=== PATIENT | male | born 1950 | race African-American/Black ===

== ENCOUNTER 2024-07-05 17:16 | Inpatient (IN) | payer MEDICARE ==
[~2024-07-05] VITALS: Ht 193 cm; Wt 77.1 kg
[2024-07-05 20:31] LABS: HEMATOCRIT. 54.3 % (42.0-52.0); HEMOGLOBIN. 18.5 g/dL (14.0-18.0); MEAN CORPUSCULAR HGB CONC 34.1 g/dL (31.0-37.0); MEAN PLATELET VOLUME 9.4 fl (7.4-10.4); PLATELET 127 x1000/uL (130-400); RED BLOOD CELL COUNT 5.97 mill/uL (4.7-6.1); RED CELL DISTRIBUTION WIDTH 13.7 % (11.6-14.6); WHITE BLOOD COUNT 7.5 x1000/uL (4.5-11.0)
[2024-07-05 20:40] LABS: POTASSIUM 5.4 mEq/L (3.5-5.1)
[2024-07-05 20:42] LABS: CALCIUM 9.9 mg/dL (8.7-10.4)
[2024-07-05] MEDS: CEFTRIAXONE 1GM/50ML 50 ML IV ONE (20:42)
[2024-07-05 20:46] LABS: CREATININE 1.5 mg/dL (0.6-1.3)
[2024-07-05 20:55] LABS: DIFFERENTIAL COMMENT 1
[2024-07-05 21:16] LABS: INR 1.1; PROTHROMBIN TIME 12.1 sec (9.6-11.0)
[2024-07-05] MEDS: AZITHROMYCIN 500MG/250ML 250 ML IV SCH (21:43)
[2024-07-05] MEDS ORDERED: IPRATROPIUM/ALBUTEROL 0.5-3(2.5)MG/3ML NEB HHN PRN (22:45)
[2024-07-05] MEDS ORDERED: ACETAMINOPHEN 325MG TABLET PO PRN (22:45)
[2024-07-05] MEDS ORDERED: DOCUSATE SODIUM 100MG CAPSULE PO PRN (22:45)
[2024-07-05] MEDS ORDERED: MAGNESIUM/ALUMINUM HYDROXIDE/SIMETHICONE 30ML UDC PO PRN (22:45)
[2024-07-05] MEDS ORDERED: ONDANSETRON HCL 4MG/2ML INJ IV PRN (22:45)
[2024-07-05 22:52] LABS: PLATELET ESTIMATE SLIGHTLY DECREASED
[2024-07-05] MEDS ORDERED: SODIUM POLYSTYRENE SULFONATE 15 G/60 ML BOT PO SCH (23:00)
[2024-07-05] MEDS ORDERED: DEXTROSE 50% WATER 50ML SYRINGE IV PRN (23:00)
[2024-07-06] VITALS (13 sets, daily range): BP systolic 94–122; BP diastolic 60–93; PULSE 68–169; RESP 18–33; TEMP 36.50292–37.0852; O2SAT 93–100
[2024-07-06] MEDS ORDERED: FURO20TA4 PO (01:05)
[2024-07-06 09:04] LABS: HEMATOCRIT. 43.2 % (42.0-52.0); HEMOGLOBIN. 14.4 g/dL (14.0-18.0); MEAN CORPUSCULAR HEMOGLOBIN 30.1 pg (28.0-32.0); MEAN CORPUSCULAR HGB CONC 33.4 g/dL (31.0-37.0); MEAN PLATELET VOLUME 10.2 fl (7.4-10.4); PLATELET 97 x1000/uL (130-400); RED CELL DISTRIBUTION WIDTH 13.5 % (11.6-14.6)
[2024-07-06] MEDS: IPRATROPIUM/ALBUTEROL 0.5-3(2.5)MG/3ML NEB HHN SCH (09:05)
[2024-07-06 09:19] LABS: DIFFERENTIAL COMMENT 1
[2024-07-06 09:30] LABS: CHLORIDE 102 mEq/L (98-107); POTASSIUM 4.7 mEq/L (3.5-5.1); SODIUM 133 mEq/L (136-145)
[2024-07-06 09:31] LABS: CALCIUM 9.2 mg/dL (8.7-10.4); CARBON DIOXIDE 24 mEq/L (21-32)
[2024-07-06 09:36] LABS: CREATININE 1.3 mg/dL (0.6-1.3); GLUCOSE 77 mg/dL (70-105); UREA NITROGEN BLOOD 22 mg/dL (9-23)
[2024-07-06] MEDS ORDERED: LISI20TA31 PO (10:04)
[2024-07-06] MEDS: LISINOPRIL 20MG TABLET PO SCH (10:37)
[2024-07-06 11:51] LABS: PHOSPHORUS 2.4 mg/dL (2.5-4.9)
[2024-07-06 14:23] LABS: HEPATITIS B SURFACE ANTIGEN NEGATIVE (Negative)
[2024-07-06 14:45] LABS: HEPATITIS C AB NON REACTIVE (Neg) (Negative)
[2024-07-06] MEDS ORDERED: BENZONATATE 100MG CAPSULE PO PRN (16:45)
[2024-07-06] MEDS: SODIUM CHLORIDE 0.9% 500 ML IV ONE (17:11)
[2024-07-06 17:16] LABS: PLATELET ESTIMATE SLIGHTLY DECREASED
[2024-07-06] MEDS: SODIUM CHLORIDE 0.9% 1,000 ML IV ONE (17:31)
[2024-07-06] MEDS ORDERED: ADENOSINE 3 MG/ML 2ML VIAL IV NR (18:00)
[2024-07-06 18:01] LABS: *AMPHETAMINES SCREEN URINE NEGATIVE (NEGATIVE); *BARBITURATES SCREEN URINE NEGATIVE (NEGATIVE); *BENZODIAZEPINES SCREEN URINE NEGATIVE (NEGATIVE); *COCAINE SCREEN URINE NEGATIVE (NEGATIVE); METHADONE URINE SCREEN NEGATIVE (NEGATIVE)
[2024-07-06 18:02] LABS: CANNABINOID URINE SCREEN NEGATIVE (NEGATIVE); ECSTASY MDMA SCREEN URINE NEGATIVE (NEGATIVE); OPIATES URINE SCREEN NEGATIVE (NEGATIVE); PHENCYCLIDINE URINE SCREEN NEGATIVE (NEGATIVE)
[2024-07-06 18:07] LABS: CLARITY URINE CLEAR (CLEAR); COLOR URINE DARK YELLOW (YELLOW); GLUCOSE URINE NEGATIVE (NEGATIVE); KETONES URINE NEGATIVE (NEGATIVE); LEUKOCYTE ESTERASE URINE NEGATIVE (NEGATIVE); NITRITE URINE NEGATIVE (NEGATIVE); OCCULT BLOOD URINE NEGATIVE (NEGATIVE); PH URINE 5.5 (4.5-8.0); PROTEIN URINE 2+ (NEGATIVE); SPECIFIC GRAVITY URINE 1.022 (1.005-1.030)
[2024-07-06] MEDS: SODIUM CHLORIDE 0.9% 1,000 ML IV SCH (18:09)
[2024-07-06] MEDS: BENZONATATE 100MG CAPSULE PO SCH (18:11)
[2024-07-06 18:32] LABS: BACTERIA URINE TRACE; RBC URINE NONE SEEN /hpf (0-2); SQUAMOUS EPITHELIAL CELL URINE RARE /lpf (RARE/1+); WBC URINE NONE SEEN /hpf (0-2)
[2024-07-06] MEDS ORDERED: CEFTRIAXONE 1GM/50ML 50 ML IV SCH (20:00)
[2024-07-06] MEDS: AMIODARONE HCL 900 MG in DEXT 5% WATER 482 ML IV SCH (20:12)
[2024-07-06] MEDS: CEFTRIAXONE 1GM/50ML 50 ML IV SCH (20:21)
[2024-07-06] MEDS: SODIUM PHOSPHATE 15 MMOL in DEXT 5% WATER 245 ML IV NR (20:58)
[2024-07-06] MEDS ORDERED: AZITHROMYCIN 500MG/250ML 250 ML IV SCH (21:00)
[2024-07-06] MEDS: FAMOTIDINE 20MG TABLET PO SCH (21:47)
[2024-07-06] MEDS: AZITHROMYCIN 500MG/250ML 250 ML IV SCH (22:17)
[2024-07-06 22:45] LABS: TROPONIN I HIGH SENSITIVITY 12 ng/L (3.0-53)
[2024-07-07] VITALS (32 sets, daily range): BP systolic 73–131; BP diastolic 63–114; PULSE 74–93; RESP 19–31; TEMP 36.33624–36.9474; O2SAT 93–100
[2024-07-07] MEDS ORDERED: PHENYLEPHRINE 50MG/250ML PMX 250 ML IV PRN (02:15)
[2024-07-07 02:56] LABS: TROPONIN I HIGH SENSITIVITY 12 ng/L (3.0-53)
[2024-07-07 07:22] LABS: HEMATOCRIT. 39.6 % (42.0-52.0); HEMOGLOBIN. 13.5 g/dL (14.0-18.0); MEAN CORPUSCULAR HEMOGLOBIN 30.5 pg (28.0-32.0); MEAN CORPUSCULAR HGB CONC 34.2 g/dL (31.0-37.0); MEAN CORPUSCULAR VOLUME 89.2 fL (80.0-94.0); MEAN PLATELET VOLUME 10.3 fl (7.4-10.4); PLATELET 81 x1000/uL (130-400); RED BLOOD CELL COUNT 4.44 mill/uL (4.7-6.1); RED CELL DISTRIBUTION WIDTH 13.3 % (11.6-14.6); WHITE BLOOD COUNT 4.2 x1000/uL (4.5-11.0)
[2024-07-07 07:29] LABS: CARBON DIOXIDE 25 mEq/L (21-32); CHLORIDE 104 mEq/L (98-107); POTASSIUM 3.9 mEq/L (3.5-5.1); SODIUM 132 mEq/L (136-145)
[2024-07-07 07:30] LABS: CALCIUM 8.7 mg/dL (8.7-10.4); DIFFERENTIAL COMMENT 1
[2024-07-07 07:34] LABS: CREATININE 1.2 mg/dL (0.6-1.3)
[2024-07-07 07:35] LABS: GLUCOSE 97 mg/dL (70-105); UREA NITROGEN BLOOD 23 mg/dL (9-23)
[2024-07-07 07:37] LABS: PHOSPHORUS 2.1 mg/dL (2.5-4.9)
[2024-07-07] MEDS: GUAIFENESIN 200MG/10ML SUGAR FREE UDC PO PRN (08:06)
[2024-07-07 08:54] LABS: ATYPICAL LYMPHOCYTES 1
[2024-07-07 08:56] LABS: PLATELET ESTIMATE DECREASED
[2024-07-07] MEDS: PANTOPRAZOLE SODIUM 40 MG/VIAL IV SCH (16:05)
[2024-07-07] MEDS: CLINDAMYCIN 600MG PREMIX 50 ML IV SCH (16:05)
[2024-07-07] MEDS: AZITHROMYCIN 500 MG TABLET PO SCH (21:35)
[2024-07-08] VITALS (14 sets, daily range): BP systolic 99–132; BP diastolic 75–104; PULSE 85–103; RESP 18–29; TEMP 36.44736–37.33632; O2SAT 92–96
[2024-07-08] MEDS: AMIODARONE 200MG TABLET PO SCH (09:12)
[2024-07-08 11:09] LABS: CARBON DIOXIDE 24 mEq/L (21-32); CHLORIDE 105 mEq/L (98-107); POTASSIUM 3.6 mEq/L (3.5-5.1); SODIUM 136 mEq/L (136-145)
[2024-07-08 11:10] LABS: CALCIUM 8.3 mg/dL (8.7-10.4)
[2024-07-08 11:15] LABS: CREATININE 1.2 mg/dL (0.6-1.3); GLUCOSE 80 mg/dL (70-105); HEMOGLOBIN 12.5 g/dL (14.0-18.0); MEAN CORPUSCULAR HEMOGLOBIN 28.7 pg (28.0-32.0); MEAN CORPUSCULAR VOLUME 89.8 fL (80.0-94.0); RED BLOOD CELL COUNT 4.35 mill/uL (4.7-6.1); RED CELL DISTRIBUTION WIDTH 12.9 % (11.6-14.6); UREA NITROGEN BLOOD 17 mg/dL (9-23); WHITE BLOOD COUNT 3.1 x1000/uL (4.5-11.0)
[2024-07-08 11:17] LABS: PHOSPHORUS 2.3 mg/dL (2.5-4.9)
[2024-07-08 12:10] LABS: PLATELET 105 x1000/uL (130-400)
[2024-07-08] MEDS: SODIUM PHOSPHATE 20 MMOL in DEXT 5% WATER 243.3333 ML IV NR (13:45)
[2024-07-08] MEDS: ENOXAPARIN 80MG/0.8ML SYR SUBCUT SCH (21:26)
[2024-07-09] VITALS (13 sets, daily range): BP systolic 112–144; BP diastolic 89–113; PULSE 79–98; RESP 16–36; TEMP 36.55848–37.05852; O2SAT 89–95
[2024-07-09] MEDS: FLUTICASONE PROPIONATE 50MCG/SPRAY BOTTLE BOTHNSTRLS SCH (06:00)
[2024-07-09 06:17] LABS: CARBON DIOXIDE 24 mEq/L (21-32); CHLORIDE 108 mEq/L (98-107); POTASSIUM 3.6 mEq/L (3.5-5.1); SODIUM 137 mEq/L (136-145)
[2024-07-09 06:18] LABS: CALCIUM 8.2 mg/dL (8.7-10.4)
[2024-07-09 06:23] LABS: GLUCOSE 84 mg/dL (70-105); UREA NITROGEN BLOOD 12 mg/dL (9-23)
[2024-07-09 06:25] LABS: PHOSPHORUS 2.4 mg/dL (2.5-4.9)
[2024-07-09 06:37] LABS: HEMATOCRIT. 37.3 % (42.0-52.0); HEMOGLOBIN. 12.5 g/dL (14.0-18.0); MEAN CORPUSCULAR HEMOGLOBIN 30.1 pg (28.0-32.0); MEAN CORPUSCULAR HGB CONC 33.5 g/dL (31.0-37.0); MEAN CORPUSCULAR VOLUME 89.7 fL (80.0-94.0); MEAN PLATELET VOLUME 9.8 fl (7.4-10.4); PLATELET 132 x1000/uL (130-400); RED BLOOD CELL COUNT 4.16 mill/uL (4.7-6.1); RED CELL DISTRIBUTION WIDTH 13.2 % (11.6-14.6); WHITE BLOOD COUNT 2.8 x1000/uL (4.5-11.0)
[2024-07-09 06:41] LABS: DIFFERENTIAL COMMENT 1
[2024-07-09] MEDS: SODIUM PHOSPHATE 15 MMOL in DEXT 5% WATER 245 ML IV NR (10:01)
[2024-07-09] MEDS ORDERED: CEFEPIME 1GM IN DEXT 5% 50ML IV SCH (13:30)
[2024-07-09] MEDS: CEFEPIME 1GM/50ML 50 ML IV SCH (14:54)
[2024-07-09] MEDS: METHYLPREDNISOLONE SOD SUCC 40MG/ML (ACT-O-VIAL) IV SCH (17:41)
[2024-07-09] MEDS: CLONIDINE 0.1MG TABLET PO PRN (18:25)
[2024-07-09 23:32] LABS: PLATELET ESTIMATE NORMAL
[2024-07-10] VITALS (10 sets, daily range): BP systolic 107–155; BP diastolic 85–115; PULSE 72–92; RESP 16–24; TEMP 35.8362–36.55848; O2SAT 92–96
[2024-07-10 04:48] LABS: CARBON DIOXIDE 22 mEq/L (21-32); CHLORIDE 108 mEq/L (98-107); POTASSIUM 4.2 mEq/L (3.5-5.1); SODIUM 137 mEq/L (136-145)
[2024-07-10 04:49] LABS: CALCIUM 8.6 mg/dL (8.7-10.4)
[2024-07-10 04:53] LABS: CREATININE 1.1 mg/dL (0.6-1.3); GLUCOSE 158 mg/dL (70-105)
[2024-07-10 04:54] LABS: UREA NITROGEN BLOOD 16 mg/dL (9-23)
[2024-07-10 04:56] LABS: PHOSPHORUS 2.8 mg/dL (2.5-4.9)
[2024-07-10 04:58] LABS: BASOPHILS % 0.4 % (0.0-2.0); HEMATOCRIT. 38.7 % (42.0-52.0); HEMOGLOBIN. 13.2 g/dL (14.0-18.0); LYMPHOCYTES % 7.5 % (20.0-50.0); MEAN CORPUSCULAR HEMOGLOBIN 30.2 pg (28.0-32.0); MEAN CORPUSCULAR HGB CONC 34.2 g/dL (31.0-37.0); MEAN CORPUSCULAR VOLUME 88.3 fL (80.0-94.0); MEAN PLATELET VOLUME 9.6 fl (7.4-10.4); MONOCYTES % 5.9 % (2.0-8.0); NEUTROPHILS % 86.2 % (40.0-76.0); PLATELET 156 x1000/uL (130-400); RED BLOOD CELL COUNT 4.38 mill/uL (4.7-6.1); RED CELL DISTRIBUTION WIDTH 13.1 % (11.6-14.6); WHITE BLOOD COUNT 2.3 x1000/uL (4.5-11.0)
[2024-07-10] MEDS: CEFEPIME 2GM/100ML 100 ML IV SCH (09:44)
[2024-07-10] MEDS ORDERED: APIX5TAB4 PO (15:34)
[2024-07-10] MEDS ORDERED: METO-396 PO (15:34)
[2024-07-10] MEDS ORDERED: METH4TAB95 MT (15:34)
[2024-07-10] MEDS ORDERED: AMOX1TAB16 PO (15:34)
[2024-07-10] MEDS ORDERED: AMI2 PO (15:34)
[2024-07-11] VITALS: BP 123/104; PULSE 93; RESP 24; TEMP 36.6696; O2SAT 93
[2024-07-11 02:57] VITALS: PULSE 88; RESP 18; O2SAT 96
[2024-07-11 04:00] VITALS: BP 124/102; PULSE 94; RESP 20; TEMP 36.3918; TEMP 36.39180; O2SAT 94
== END 2024-07-11 08:30 | disposition home or self-care (01) | DRG 871 ==
LOC: ER 17:16 → 7WST 22:10 → EDBEDREQ 22:14 → CVICU 07-06 20:05 → 5EST 07-07 12:26
PROVIDERS: ADMIT Internal Medicine; ATTEND Internal Medicine
DX: A41.9 Sepsis, unspecified organism (principal); J18.9 Pneumonia, unspecified organism; J96.01 Acute respiratory failure with hypoxia; N17.0 Acute kidney failure with tubular necrosis; I45.2 Bifascicular block; I48.92 Unspecified atrial flutter; D69.6 Thrombocytopenia, unspecified; K52.9 Noninfective gastroenteritis and colitis, unspecified; D75.1 Secondary polycythemia; I11.0 Hypertensive heart disease with heart failure; I50.9 Heart failure, unspecified; E87.5 Hyperkalemia; E86.0 Dehydration; D72.819 Decreased white blood cell count, unspecified; Z20.822 Contact with and (suspected) exposure to COVID-19; R65.20 Severe sepsis without septic shock; E16.2 Hypoglycemia, unspecified; Z79.899 Other long term (current) drug therapy; Z87.891 Personal history of nicotine dependence
CPT/HCPCS: 36415; 71045; 80048; 80305; 81003; 83735; 83880; 84100; 84145; 84484; 85025; 85027; 86705; 87070; 87340; 87426; 87804; 93005; 93306; 93970; 94640; 99291; J0153; J0282; J0456; J0692; J0696; J1650; J2470; J2920; J3490; J7030; J7060